=== PATIENT | male | born 1980 | race Caucasian/White ===

== ENCOUNTER 2018-08-02 05:35 | Emergency (ER) | payer BC, OTHER ==
[~2018-08-02] VITALS: Ht 188 cm; Wt 88.9 kg
[2018-08-02] MEDS ORDERED: FAMOTIDINE 20 MG/2 ML IVP ONE (06:00)
[2018-08-02] MEDS ORDERED: SODIUM CHLORIDE 0.9% 1,000ML IVBOLUS ONE (06:00)
[2018-08-02] MEDS ORDERED: LORazepam 2 MG/ML, 1ML IVPush ONE (06:00)
[2018-08-02] MEDS ORDERED: ONDANSETRON 2MG/ML, 2ML IVPush ONE (06:00)
[2018-08-02] MEDS ORDERED: KETOROLAC 30 MG/1 ML IVPush ONE (06:00)
[2018-08-02] MEDS ORDERED: KETOROLAC 30 MG/1 ML ONE (06:10)
[2018-08-02] MEDS ORDERED: ONDANSETRON 2MG/ML, 2ML ONE (06:10)
[2018-08-02] MEDS ORDERED: LORazepam 2 MG/ML, 1ML ONE (06:11)
[2018-08-02] MEDS ORDERED: FAMOTIDINE 20 MG/2 ML ONE (06:11)
--- NOTE | 2018-08-02 06:27 | NUR ---
PT HERE FOR ABD PAIN AND N/V SINCE TUESDAY NIGHT. PIV PLACED. PT MEDICATED. VSS. PT GIVEN URINAL FOR UA. CALL LIGHT IN REACH.
[2018-08-02 06:29] LABS: BASOPHILS # (AUTO) 0.07 x10^3/uL (0-0.1); BASOPHILS % (AUTO) 1 % (0-1); EOSINOPHILS # (AUTO) 0.01 x10^3/uL (0-0.4); EOSINOPHILS % (AUTO) 0 % (1-7); LYMPHOCYTES # (AUTO) 1.76 x10^3/uL (1-3.4); LYMPHOCYTES % (AUTO) 16 % (22-44); MD NO; MEAN CORPUSCULAR HEMOGLOBIN 32.4 pg (27.5-34.5); MEAN CORPUSCULAR HGB CONC 34.3 g/dL (33.2-36.2); MEAN CORPUSCULAR VOLUME 94.3 fL (81-97); MEAN PLATELET VOLUME 8.1 fL (7.4-10.4); MONOCYTES # (AUTO) 0.62 x10^3/uL (0.2-0.8); MONOCYTES % (AUTO) 6 % (2-9); NEUTROPHILS # (AUTO) 8.86 x10^3/uL (1.8-6.8); NEUTROPHILS % (AUTO) 78 % (42-75); PLATELET COUNT 283 x10^3/uL (130-400); RED CELL DISTRIBUTION WIDTH 12.7 % (9.4-14.8)
--- NOTE | 2018-08-02 06:37 | NUR ---
UA SENT TO LAB.
[2018-08-02 06:39] LABS: ALANINE AMINOTRANSFERASE 36 U/L (12-78); ALBUMIN 4.7 g/dL (3.4-5.0); ANION GAP 10 mmol/L (5-15); CALCIUM 9.9 mg/dL (8.5-10.1); CHLORIDE 101 mmol/L (98-107); CREATININE 1.12 mg/dL (0.7-1.3)
[2018-08-02 06:41] LABS: ALKALINE PHOSPHATASE 99 U/L (45-117); BILIRUBIN,TOTAL 0.9 mg/dL (0.2-1.0); TOTAL PROTEIN 8.8 g/dL (6.4-8.2)
[2018-08-02 06:47] LABS: MICROSCOPIC INDICATED
[2018-08-02 06:50] LABS: CULTURE INDICATED? NO
--- NOTE | 2018-08-02 07:01 | NUR ---
RECEIVED REPORT FROM JONATHAN HUMMEL. PT RESTING IN BED AWAITING FURTHER TEST RESULTS
[2018-08-02] MEDS ORDERED: POTASSIUM CHLORIDE 20 MEQ TAB.ER.PRT PO ONE (07:30)
[2018-08-02] MEDS ORDERED: POTASSIUM CHLORIDE 20 MEQ TAB.ER.PRT ONE (08:03)
[2018-08-02 08:31] VITALS: BP 123/80
== END 2018-08-02 08:33 | disposition home or self-care (01) ==
LOC: ED 07:03
DX: A08.4 Viral intestinal infection, unspecified (principal); F17.210 Nicotine dependence, cigarettes, uncomplicated
CPT/HCPCS: 36415; 80053; 81001; 83690; 85025; 96361; 96374; 96375; 99283; J1885; J2060; J2405; J3490; J7030